=== PATIENT | male | born 1995 | race African-American/Black ===

== ENCOUNTER 2017-09-12 21:53 | Emergency (ER) | payer BC ==
[~2017-09-12] VITALS: Ht 185.4 cm; Wt 84.5 kg
[2017-09-12 23:07] LABS: HEMATOCRIT 44.1 % (38.0-50.0); HEMOGLOBIN 16.2 G/DL (12.5-16.6); MCH 32.9 PG (29.0-34.0); MCHC 36.7 G/DL (30.0-36.0); MCV 89.6 FL (86-99); PLATELET COUNT 297 K/uL (156-360); RBC DIS.WIDTH-CV 12.1 % (11.8-14.6); RBC DIS.WIDTH-SD 39.8 % (39-53); RED BLOOD COUNT 4.92 M/uL (4.00-5.50); WHITE BLOOD COUNT 10.3 K/uL (4.1-10.2)
[2017-09-12 23:16] LABS: ALBUMIN 4.3 g/dL (3.2-4.8); CHLORIDE 111 mEq/L (99-109); POTASSIUM 3.6 mEq/L (3.7-5.4); SODIUM 142 mEq/L (136-147)
[2017-09-12 23:18] LABS: GLUCOSE 109 mg/dL (70-99)
[2017-09-12 23:19] LABS: TOTAL PROTEIN 7.4 g/dL (6.4-8.3)
[2017-09-12 23:20] LABS: TOTAL BILIRUBIN 0.6 mg/dL (0.0-1.0)
[2017-09-12 23:21] LABS: SERUM ETHYL ALCOHOL < 10 mg/dL
[2017-09-12 23:22] LABS: ALKALINE PHOSPHATASE 78 IU/L (3-129); CREATININE 0.9 mg/dL (0.6-1.3)
[2017-09-12 23:23] LABS: UREA NITROGEN (BUN) 14 mg/dL (9-23)
[2017-09-12 23:24] LABS: AST (GOT) 27 IU/L (2-34); GFR ESTIMATE (CALCULATED) > 59 mL/min/ (58.99-99999)
[2017-09-12 23:25] LABS: ALT (GPT) 19 IU/L (3-49)
[2017-09-13 09:18] VITALS: BP 128/56
== END 2017-09-13 09:19 | disposition home or self-care (01) ==
LOC: EME 21:53 → EDBD 21:53 → EME 09-13 09:19
PROVIDERS: Emergency Medicine
DX: F84.0 Autistic disorder (principal); R45.1 Restlessness and agitation; F31.9 Bipolar disorder, unspecified
CPT/HCPCS: 80053; 81003; 85027; 90839; 99281; 99284; G0480; J1630; J2060